=== PATIENT | female | born 1965 | race Caucasian/White ===

== ENCOUNTER 2016-05-01 15:13 | Emergency (ER) | payer OTHER ==
[~2016-05-01] VITALS: Ht 149.9 cm; Wt 74.8 kg
--- NOTE | 2016-05-01 15:23 | NUR ---
Patient ambulated to bed 06.
--- NOTE | 2016-05-01 15:24 | NUR ---
Dr. Alonso evaluating patient at bedside.
[2016-05-01 15:25] VITALS: BP 151/117
[2016-05-01] MEDS ORDERED: TETRACAINE 0.5% OPTH SOL 2 ML BTL ONE (15:36)
--- NOTE | 2016-05-01 15:36 | NUR ---
50/f to ed WITH C/O BILAT EYE PAIN X2 HOURS. PT STATES SHE GOT BLEACH IN BOTH EYES. BURNING PAIN 8/10. LUNGS CLEAR BILAT. HR EVEN AND REGULAR. AAOX4. VSS. NO SIGNS OF DISTRESS.
[2016-05-01 16:09] VITALS: BP 151/117
--- NOTE | 2016-05-01 16:09 | NUR ---
Patient discharged with v/s stable. Written and verbal after care instructions given and explained. Patient alert, oriented and verbalized understanding of instructions. Ambulatory with steady gait. All questions addressed prior to discharge. ID band removed. Patient advised to follow up with PMD. Rx of EYE DROPS, AND TYLENOL given. Patient educated on indication of medication including possible reaction and side effects. Opportunity to ask questions provided and answered.
== END 2016-05-01 16:09 | disposition home or self-care (01) ==
LOC: MED 15:13
DX: T59.891A Toxic effect of other specified gases, fumes and vapors, accidental (unintentional), initial encounter (principal); H10.9 Unspecified conjunctivitis; Y92.59 Other trade areas as the place of occurrence of the external cause
CPT/HCPCS: 99282; J7030